=== PATIENT | female | born 1995 | race Caucasian/White ===

== ENCOUNTER 2019-06-28 22:45 | Inpatient (IN) | payer OTHER ==
[2019-06-28] MEDS ORDERED: RINGERS SOLUTION,LACTATED 1,000 ML IV PRN (22:47)
[2019-06-28] MEDS ORDERED: OXYTOCIN/NORMAL SALINE 20 UNIT/1,000 ML RTUINJ IV PRN (22:47)
[2019-06-28] MEDS ORDERED: MAG HYDROX/AL HYDROX/SIMETH SUSP 30 ML UDCUP PO PRN (22:47)
[2019-06-28] MEDS ORDERED: ACETAMINOPHEN 325 MG TABLET PO PRN (22:47)
[2019-06-28] MEDS ORDERED: DINOPROSTONE 10 MG VAGINAL INSERT.SR PV ONE (22:47)
[2019-06-28] MEDS ORDERED: RINGERS SOLUTION,LACTATED 1,000 ML IV ONE (22:47)
[2019-06-28] MEDS ORDERED: ZOLPIDEM TARTRATE 5 MG TABLET PO PRN (22:47)
[2019-06-28] MEDS ORDERED: LIDOCAINE 1% INJ-PF (10 MG/ML) 30 ML SDV ONE (22:57)
[2019-06-28] MEDS ORDERED: MISOPROSTOL 0.2 MG TABLET ONE (22:57)
[2019-06-28] MEDS ORDERED: OXYTOCIN 10 UNIT/ML VIAL ONE (22:57)
[2019-06-28] MEDS ORDERED: OXYTOCIN/NORMAL SALINE 20 UNIT/1,000 ML RTUINJ ONE (22:57)
[2019-06-28] MEDS ORDERED: DINOPROSTONE 10 MG VAGINAL INSERT.SR ONE (23:57)
[2019-06-29 00:11] LABS: APPEARANCE,URINE SLIGHTLY-CLOUDY; BILIRUBIN,URINE NEGATIVE (NEGATIVE); COLOR,URINE YELLOW; GLUCOSE, URINE NEGATIVE (NEGATIVE); KETONES,URINE NEGATIVE (NEGATIVE); LEUKOCYTE ESTERASE,URINE MODERATE (NEGATIVE); NITRITE,URINE NEGATIVE (NEGATIVE); PROTEIN,URINE NEGATIVE (NEGATIVE); URINE SPECIFIC GRAVITY 1.011; UROBILINOGEN,URINE NEGATIVE mg/dL (<2.0)
[2019-06-29 01:07] LABS: ABSOLUTE MONOCYTES (AUTO) 0.9 10^3/uL (0.1-1.4); ABSOLUTE NEUT (AUTO) 9.5 10^3/uL (1.7-8.2); BASOPHILS % (AUTO) 0.3 % (0-2); EOSINOPHILS % (AUTO) 0.3 % (0-6); HEMATOCRIT 34.9 % (36.0-47.0); LYMPHOCYTES % (AUTO) 15.6 % (13-45); MEAN CORPUSCULAR HEMOGLOBIN 29.5 pg (27.0-33.4); MEAN CORPUSCULAR HGB CONC 34.5 g/dL (32.0-36.0); MEAN CORPUSCULAR VOLUME 86 fl (80-97); MONOCYTES % (AUTO) 7.4 % (3-13); PLATELET COUNT 193 10^3/uL (150-450); RED BLOOD COUNT 4.08 10^6/uL (3.72-5.28); RED CELL DISTRIBUTION WIDTH 14.9 % (11.5-14.0); SEGMENTED NEUTROPHILS % (AUTO) 76.4 % (42-78); TOTAL CELLS COUNTED % (AUTO) 100 %; WHITE BLOOD COUNT 12.5 10^3/uL (4.0-10.5)
--- NOTE | 2019-06-29 07:01 | Admission Physical ---
Datetime Report Generated by CPN: 06/29/2019 07:01 CURRENT ADMISSION Chief Complaint: Scheduled Induction of Labor Indication for Induction: PreEclampsia; Maternal Diabetes Admit Impression : Term, Intrauterine ; No Active Labor; Intact Membranes; Induction of Labor Admit Plan: Admit to Unit; Initiate Labor Induction Protocol ALLERGIES Medication Allergies: No Medication Allergies: No Known Allergies (06/28/2019) Latex: No Latex Allergies Food Allergies: none Environmental Allergies: none OBSTETRICAL HISTORY EDC: 07/20/2019 00:00 : 1 Para: 0 Gestational Diabetes: Yes Rh Sensitization: No Incompetent Cervix: No JODEE: No Infertility: No ART Treatment: No Uterine Anomaly: No IUGR: No Hx Previous C/S: No Macrosomia: No Hx Loss/Stillborn: No PIH: No Hx : No Placenta Previa/Abruption: No Depression/PP Depression: No PTL/PROM: No Post Hemorrhage: No Current Procedures: Ultrasound; NST Obstetrical History Comments: G1- current, pre e, GDM SEE RECORDS Alcohol: No Marijuana : No Cocaine: No Other Illicit Drugs: No Cigarettes: Never Smoker. 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 Surgery: No Heart Disease: No Hosp/Surgery: No Autoimmune Disorder: No Anesthetic Complications: No Kidney Disease: No Abnormal Pap Smear: No Neuro/Epilepsy: No Psychiatric Disorders: No Other Medical Diseases: No Hepatitis/Liver Disease: No Significant Family History: No Varicosities/Phlebitis: No Trauma/Violence : No Thyroid Dysfunction: No INFECTIOUS HISTORY Gonorrhea: No Genital Herpes: No Chlamydia: No Tuberculosis: No Syphilis: No Hepatitis: No HIV/AIDS Exposure: No Rash or Viral Illness: No HPV: No PHYSICAL EXAM General: Normal HEENT: Normal Neurologic: Normal Thyroid: Normal Heart: Normal Lungs: Normal Breast: Normal Back: Normal Abdomen: Normal Genitourinary Exam: Normal Extremities: Normal DTRs: Normal Pelvic Type: Adequate Vital Signs: Reviewed; Within Normal Limits VAGINAL EXAM Dilatation: 1 Effacement: 50 Station: -3 MEMBRANES Pooling: Negative Membranes: Intact FETUS A EGA: 37.0 Monitoring: External US FHR- Baseline: 120s Variability: Moderate 6-25bpm Accelerations: 15X15 Decelerations: None FHR Category: Category I Admit Comment: G1 w/ an IUP@37-0/7 weeks presents to L_D for a scheduled IOL secondary to pre-eclampsia and GDM (diet controlled). She reports good movement. She is GBS Negative. Cervidil is planned for her. PLANS FOR LABOR AND DELIVERY Labor and Delivery: None Pain Management: Epidural Feeding Preference: Breast Benefit of Breast Feed Discussed: Yes Circumcision: Yes INFORMED CONSENT Signature: with User ID: [email or web address]
[2019-06-29 09:06] LABS: ALBUMIN 3.2 g/dL (3.5-5.0); ALKALINE PHOSPHATASE 159 U/L (38-126); ANION GAP 7 (5-19); ASPARTATE AMINO TRANSFERASE 21 U/L (14-36); BLOOD UREA NITROGEN 7 mg/dL (7-20); CALCIUM 9.2 mg/dL (8.4-10.2); CARBON DIOXIDE 22 mmol/L (22-30); CHLORIDE 107 mmol/L (98-107); GLUCOSE 92 mg/dL (75-110); POTASSIUM 3.9 mmol/L (3.6-5.0)
[2019-06-29 09:07] LABS: BILIRUBIN,TOTAL 0.3 mg/dL (0.2-1.3); TOTAL PROTEIN 6.2 g/dL (6.3-8.2); URIC ACID 4.1 mg/dL (2.5-6.2)
[2019-06-29] MEDS ORDERED: HYDROMORPHONE HCL INJ/PF 2 MG/ML AMPULE IV PRN (15:57)
[2019-06-29] MEDS ORDERED: HYDROMORPHONE HCL INJ/PF 2 MG/ML AMPULE ONE ×2 (16:00→22:12)
[2019-06-29] MEDS ORDERED: EPHEDRINE SULFATE INJ 50 MG/1 ML AMPULE ONE (21:32)
[2019-06-29] MEDS ORDERED: FENTANYL/BUPIVACAINE/NS/PF 300 MCG/150 ML RTUINJ EPI ONE (21:33)
[2019-06-29] MEDS ORDERED: BUPIVACAINE HCL 0.25 % INJ/PF (2.5 MG/1 ML) 30 ML VIAL ONE (21:33)
[2019-06-29 21:42] LABS: ABSOLUTE MONOCYTES (AUTO) 0.9 10^3/uL (0.1-1.4); ABSOLUTE NEUT (AUTO) 8.3 10^3/uL (1.7-8.2); BASOPHILS % (AUTO) 0.3 % (0-2); EOSINOPHILS % (AUTO) 0.2 % (0-6); HEMOGLOBIN 11.9 g/dL (12.0-15.5); LYMPHOCYTES % (AUTO) 17.4 % (13-45); MEAN CORPUSCULAR HEMOGLOBIN 29.5 pg (27.0-33.4); MEAN CORPUSCULAR HGB CONC 33.9 g/dL (32.0-36.0); MEAN CORPUSCULAR VOLUME 87 fl (80-97); PLATELET COUNT 191 10^3/uL (150-450); RED BLOOD COUNT 4.03 10^6/uL (3.72-5.28); RED CELL DISTRIBUTION WIDTH 15.2 % (11.5-14.0); SEGMENTED NEUTROPHILS % (AUTO) 74.1 % (42-78); TOTAL CELLS COUNTED % (AUTO) 100 %; WHITE BLOOD COUNT 11.2 10^3/uL (4.0-10.5)
[2019-06-29 21:59] LABS: ALBUMIN 3.4 g/dL (3.5-5.0); ALKALINE PHOSPHATASE 159 U/L (38-126); ANION GAP 9 (5-19); ASPARTATE AMINO TRANSFERASE 26 U/L (14-36); BILIRUBIN,DIRECT 0.3 mg/dL (0.0-0.4); BILIRUBIN,TOTAL 0.5 mg/dL (0.2-1.3); BLOOD UREA NITROGEN 7 mg/dL (7-20); CALCIUM 9.3 mg/dL (8.4-10.2); CARBON DIOXIDE 20 mmol/L (22-30); CHLORIDE 107 mmol/L (98-107); GLUCOSE 83 mg/dL (75-110); POTASSIUM 3.8 mmol/L (3.6-5.0); URIC ACID 3.6 mg/dL (2.5-6.2)
[2019-06-29] MEDS ORDERED: FENTANYL CITRATE INJ/PF 100 MCG/2 ML AMPUL ONE (22:02)
[2019-06-29] MEDS ORDERED: LIDOCAINE 1% INJ-PF (10 MG/ML) 30 ML SDV ONE (22:02)
[2019-06-29] MEDS ORDERED: CEFAZOLIN INJ 1 GM VIAL ONE (22:12)
[2019-06-29] MEDS ORDERED: MISOPROSTOL 0.2 MG TABLET ONE (22:12)
[2019-06-29] MEDS ORDERED: OXYTOCIN/NORMAL SALINE 0 UNIT/0 ML RTUINJ ONE (22:16)
[2019-06-30] MEDS ORDERED: FENTANYL CITRATE INJ/PF 100 MCG/2 ML AMPUL ONE (03:58)
[2019-06-30] MEDS ORDERED: LIDOCAINE 1.5%/EPINEPHRINE INJ 5 ML AMP ONE (04:01)
[2019-06-30] MEDS ORDERED: ACETAMINOPHEN 325 MG TABLET ONE (04:24)
[2019-06-30] MEDS ORDERED: MAGNESIUM HYDROXIDE SUSP 30 ML UDCUP PO PRN (06:59)
[2019-06-30] MEDS ORDERED: DIPH/PERTUSS(ACELL)/TETANUS VAC/PF 0.5 ML SYR (>=10YO) IM PRN (06:59)
[2019-06-30] MEDS ORDERED: NA PHOS,M-B/NA PHOS,DI-BA (ADULT) 133 ML ENEMA PR PRN (06:59)
[2019-06-30] MEDS ORDERED: OXYTOCIN/NORMAL SALINE 20 UNIT/1,000 ML RTUINJ IV PRN (06:59)
[2019-06-30] MEDS ORDERED: ACETAMINOPHEN WITH CODEINE #3 TABLET PO PRN ×2 (06:59)
[2019-06-30] MEDS ORDERED: PSEUDOEPHEDRINE HCL 30 MG TABLET PO PRN (06:59)
[2019-06-30] MEDS ORDERED: ACETAMINOPHEN 325 MG TABLET PO PRN (06:59)
[2019-06-30] MEDS ORDERED: DIBUCAINE 1% OINTMENT 28 GM TP PRN (06:59)
[2019-06-30] MEDS ORDERED: ZOLPIDEM TARTRATE 5 MG TABLET PO PRN (06:59)
[2019-06-30] MEDS ORDERED: MEASLES,MUMPS&RUBELLA VACC/PF 0.5 ML VIAL SUBCUT PRN (06:59)
[2019-06-30] MEDS ORDERED: BENZOCAINE/MENTHOL AEROSOL SPRAY 56 ML TOP PRN (06:59)
[2019-06-30] MEDS ORDERED: PROMETHAZINE HCL INJ 25 MG/1 ML VIAL IV PRN (06:59)
[2019-06-30] MEDS ORDERED: GLYCERIN/WITCH HAZEL LEAF 1 EACH MED..WIPE TP PRN (06:59)
[2019-06-30] MEDS ORDERED: PROMETHAZINE HCL 25 MG TABLET PO PRN (06:59)
[2019-06-30] MEDS ORDERED: ACETAMINOPHEN 650 MG SUPP.RECT PR PRN (06:59)
[2019-06-30] MEDS ORDERED: DIPHENHYDRAMINE HCL 25 MG CAPSULE PO PRN (06:59)
[2019-06-30] MEDS ORDERED: PROMETHAZINE HCL 25 MG SUPP.RECT PR PRN (06:59)
[2019-06-30] MEDS: DOCUSATE SODIUM 100 MG CAPSULE PO SCH ×2 (09:25→17:41)
[2019-06-30] MEDS: SENNOSIDES/DOCUSATE 8.6-50 MG 1 EACH TABLET PO SCH (09:25)
[2019-06-30] MEDS: PRENATAL VITAMIN W DHA CAPSULE PO SCH (09:25)
[2019-06-30] MEDS: FERROUS SULFATE 325 MG TABLET PO SCH ×2 (09:25→17:41)
[2019-06-30] MEDS: FAMOTIDINE 20 MG TABLET PO SCH ×2 (09:26→21:09)
[2019-06-30] MEDS: IBUPROFEN 800 MG TABLET PO SCH ×2 (14:00→21:09)
[2019-06-30] MEDS ORDERED: INFLUENZA QUAD (6MOS+) 2019-20 VAC 0.5 ML SYR IM ONE (15:00)
[2019-07-01] MEDS: IBUPROFEN 800 MG TABLET PO SCH ×3 (05:47→22:19)
[2019-07-01 07:55] LABS: HEMOGLOBIN 9.9 g/dL (12.0-15.5); MEAN CORPUSCULAR HEMOGLOBIN 29.7 pg (27.0-33.4); MEAN CORPUSCULAR HGB CONC 34.1 g/dL (32.0-36.0); MEAN CORPUSCULAR VOLUME 87 fl (80-97); PLATELET COUNT 182 10^3/uL (150-450); RED BLOOD COUNT 3.33 10^6/uL (3.72-5.28); WHITE BLOOD COUNT 13.1 10^3/uL (4.0-10.5)
[2019-07-01] MEDS: PRENATAL VITAMIN W DHA CAPSULE PO SCH (09:11)
[2019-07-01] MEDS: FERROUS SULFATE 325 MG TABLET PO SCH ×2 (09:11→17:57)
[2019-07-01] MEDS: SENNOSIDES/DOCUSATE 8.6-50 MG 1 EACH TABLET PO SCH (09:12)
[2019-07-01] MEDS: FAMOTIDINE 20 MG TABLET PO SCH ×2 (09:12→22:19)
[2019-07-01] MEDS: DOCUSATE SODIUM 100 MG CAPSULE PO SCH ×2 (09:12→17:57)
--- NOTE | 2019-07-01 09:21 | PDOC PROGRESS REPORT ---
Subjective-OB Progress Note for:: 07/01/19 Subjective: Pt doing well, no complaints. She reports light bleeding, reg diet and voiding without difficulty. Physical Exam (OB) Vital Signs: Temp Pulse Resp BP Pulse Ox 98 F 96 12 134/70 H 99 07/01/19 04:00 07/01/19 04:00 07/01/19 04:00 07/01/19 04:00 06/30/19 21:09 - PIH/Pre-Eclampsia DTR's: 1 + Clonus: Negative Headache: Absent Epigastric Pain: No Visual Changes: No - Lochia Lochia Amount: Scant < 10 ml Lochia Color: Rubra/Red - Abdomen Description: Tender, Soft, Round Hernia Present: No Fundal Description: Firm, Midline Fundal Height: u/u - u/2 Objective-Diagnostic Laboratory: 07/01/19 06:37 06/29/19 21:27 07/01/19 06:37 WBC 13.1 H RBC 3.33 L Hgb 9.9 L Hct 29.0 L MCV 87 MCH 29.7 MCHC 34.1 RDW 15.0 H Plt Count 182 Assessment and Plan(PN) - Assessment and Plan (1) Obstetrical laceration, second degree Is this a current diagnosis for this admission?: Yes (2) Pre-eclampsia Qualifiers: Trimester: third trimester Qualified Code(s): O14.93 - Unspecified pre- eclampsia, third trimester Is this a current diagnosis for this admission?: Yes (3) Vaginal delivery Is this a current diagnosis for this admission?: Yes - Time Spent with Patient Time with patient: Less than 15 minutes Medications reviewed and adjusted accordingly: Yes - Disposition Anticipated Discharge: Home Within: within 24 hours
[2019-07-02] MEDS: IBUPROFEN 800 MG TABLET PO SCH (05:01)
[2019-07-02 08:27] VITALS: BP 108/55
[2019-07-02] MEDS: FERROUS SULFATE 325 MG TABLET PO SCH (10:16)
[2019-07-02] MEDS: PRENATAL VITAMIN W DHA CAPSULE PO SCH (10:16)
[2019-07-02] MEDS: DOCUSATE SODIUM 100 MG CAPSULE PO SCH (10:17)
[2019-07-02] MEDS: SENNOSIDES/DOCUSATE 8.6-50 MG 1 EACH TABLET PO SCH (10:17)
[2019-07-02] MEDS: FAMOTIDINE 20 MG TABLET PO SCH (10:17)
--- NOTE | 2019-07-02 10:51 | PDOC DISCHARGE SUMMARY ---
Impression - Admit/DC Date/PCP Admission Date/Primary Care Provider: 06/28/19 22:45 Discharge Date: 07/02/19 - Discharge Diagnosis (1) Obstetrical laceration, second degree Is this a current diagnosis for this admission?: Yes (2) Pre-eclampsia Is this a current diagnosis for this admission?: Yes (3) Vaginal delivery Is this a current diagnosis for this admission?: Yes - Additional Information Resuscitation Status: Full Code Discharge Diet: Regular Discharge Activity: Balance Activity w/Rest, Pelvic Rest Referrals: [facility] [Provider Group] Home Medications: Vit,Calc76/Iron/Folic [Prenatabs Rx Tablet] 1 tab PO DAILY 06/28/19 Results Laboratory Results: WBC 13.1 10^3/uL (4.0-10.5) H 07/01/19 06:37 RBC 3.33 10^6/uL (3.72-5.28) L 07/01/19 06:37 Hgb 9.9 g/dL (12.0-15.5) L 07/01/19 06:37 Hct 29.0 % (36.0-47.0) L 07/01/19 06:37 MCV 87 fl (80-97) 07/01/19 06:37 MCH 29.7 pg (27.0-33.4) 07/01/19 06:37 MCHC 34.1 g/dL (32.0-36.0) 07/01/19 06:37 RDW 15.0 % (11.5-14.0) H 07/01/19 06:37 Plt Count 182 10^3/uL (150-450) 07/01/19 06:37 Lymph % (Auto) 17.4 % (13-45) 06/29/19 21:27 Walker % (Auto) 8.0 % (3-13) 06/29/19 21:27 Eos % (Auto) 0.2 % (0-6) 06/29/19 21:27 Baso % (Auto) 0.3 % (0-2) 06/29/19 21:27 Absolute Neuts (auto) 8.3 10^3/uL (1.7-8.2) H 06/29/19 21:27 Absolute Lymphs (auto) 2.0 10^3/uL (0.5-4.7) 06/29/19 21: Absolute Monos (auto) 0.9 10^3/uL (0.1-1.4) 06/29/19: Absolute Eos (auto) 0.0 10^3/uL (0.0-0.6) 06/29/19: Absolute Basos (auto) 0.0 10^3/uL (0.0-0.2) 06/29/19: Seg Neutrophils % 74.1 % (42-78) 06/29/19 21: Sodium 136.4 mmol/L (137-145) L 06/29/19: Potassium 3.8 mmol/L (3.6-5.0) 06/29/19: Chloride 107 mmol/L (98-107) 06/29/19: Carbon Dioxide 20 mmol/L (22-30) L 06/29/19: Anion Gap 9 (5-19) 06/29/19: BUN 7 mg/dL (7-20) 06/29/19: Creatinine 0.41 mg/dL (0.52-1.25) L 06/29/19: Est GFR ( Amer) > 60 (>60) 06/29/19: Est GFR (MDRD) Non-Af > 60 (>60) 06/29/19: Glucose 83 mg/dL (75-110) 06/29/19: Uric Acid 3.6 mg/dL (2.5-6.2) 06/29/19: Calcium 9.3 mg/dL (8.4-10.2) 06/29/19: Total Bilirubin 0.5 mg/dL (0.2-1.3) 06/29/19: Direct Bilirubin 0.3 mg/dL (0.0-0.4) 06/29/19: Neonat Total Bilirubin Not Reportable 06/29/19: Neonat Direct Bilirubin Not Reportable 06/29/19: Neonat Indirect Bili Not Reportable 06/29/19: AST 26 U/L (14-36) 06/29/19: ALT 18 U/L (<35) 06/29/19 21:27 Alkaline Phosphatase 159 U/L (38-126) H 06/29/19 21:27 Lactate Dehydrogenase 183 U/L (120-246) 06/29/19 21: Total Protein 7.0 g/dL (6.3-8.2) 06/29/19 21: Albumin 3.4 g/dL (3.5-5.0) L 06/29/19 21: Urine Color YELLOW 06/28/19 23:05 Urine Appearance SLIGHTLY-CLOUDY 06/28/19 23:05 Urine pH 7.0 (5.0-9.0) 06/28/19 23:05 Ur Specific Pansey 1.011 06/28/19 23:05 Urine Protein NEGATIVE mg/dL (NEGATIVE) 06/28/19 23:05 Urine Glucose (UA) NEGATIVE mg/dL (NEGATIVE) 06/28/19 23:05 Urine Ketones NEGATIVE mg/dL (NEGATIVE) 06/28/19 23:05 Urine Blood MODERATE (NEGATIVE) H 06/28/19 23:05 Urine Nitrite NEGATIVE (NEGATIVE) 06/28/19 23:05 Urine Bilirubin NEGATIVE (NEGATIVE) 06/28/19 23:05 Urine Urobilinogen NEGATIVE mg/dL (<2.0) 06/28/19 23:05 Ur Leukocyte Esterase MODERATE (NEGATIVE) H 06/28/19 23:05 Urine WBC (Auto) 73 /HPF 06/28/19 23:05 Urine RBC (Auto) 5 /HPF 06/28/19 23:05 Urine Bacteria (Auto) 2+ /HPF 06/28/19 23:05 Squamous Epi Cells Auto <1 /HPF 06/28/19 23:05 Urine Mucus (Auto) RARE /LPF 06/28/19 23:05 Urine Ascorbic Acid NEGATIVE (NEGATIVE) 06/28/19 23:05 RPR NONREACTIVE (NONREACTIVE) 06/29/19 00:40 Blood Type O NEGATIVE 06/29/19 00:40 Antibody Screen POSITIVE 06/29/19 00:40 Antibody Identification RHOGAM INDUCED ANTI-D 06/29/19 00:40
--- NOTE | 2019-07-05 09:14 | Delivery Summary ---
Del Sum A-C Datetime Report Generated by CPN: 07/05/2019 09:14 DELIVERY PERSONNEL DELIVERY PERSONNEL: [id number] Delivery Doctor:: Symone Taylor MD Labor and Delivery Nurse:: Luci Li RNboring machine set up operator Nurse:: Frances Kahn RN Patients Transporter:: Tova Tubbs RN Nursery Nurse:: BOB Restrepo Tech/WIRE TINNER: Angeles Vásquez, ST MATERNAL INFORMATION Delivery Anesthesia: Epidural Medications After Delivery: Pitocin Bolus-Please Comment Meds After Delivery Comment: Pitocin 20 units/1000 ml NSS Estimated Blood Loss (ml): 200 Delivery QBL Comment: 200 Maternal Complications: None Provider Comments: VMI delivered in BERNARD presentation. No nuchal cord. Shoulders and body delivered without difficulty. Cord doubly clamped and cut and to maternal abdomen for NRP. Placenta delivered intact spontaneously. FF at U. 2nd degree perineal laceration repaired with good hemostasis. periurethral laceration repaired with good hemostasis. Mother and baby stable upon provider leaving the room. LABOR SUMMARY EDC: 07/20/2019 00:00 No. Babies in Womb: 1 Labor Anesthesia: Epidural LABOR INFORMATION Reason for Induction: Post Dates Onset of Labor: 06/29/2019 21:00 Complete Dilatation: 06/30/2019 05:07 Cervical Ripening Agents: Cervidil Oxytocin: Induction Group B Beta Strep: Negative Steroids Given: None Reason Steroids Not Administered: Not Applicable MEMBRANES Membranes Rupture Method: Artificial Rupture of Membranes: 06/29/2019 21:00 Length of Rupture (hr): 9.50 Amniotic Fluid Color: Clear Amniotic Fluid Amount: Moderate Amniotic Fluid Odor: Normal STAGES OF LABOR Stage 1 hr: 8 Stage 1 min: 7 Stage 2 hr: 1 Stage 2 min: 23 Stage 3 hr: 0 Stage 3 min: 4 Total Time in Labor hr: 9 Total Time in Labor min: 34 VAGINAL DELIVERY Episiotomy: None Laceration #1: Perineal Laceration Extension #1: Second Degree Laceration #2: Periurethral Laceration Extension #2: N/A Laceration Repair: Yes Laceration Repair Note: both lacerations repaired in usual fashion Sponge Count Correct: Yes Sharps Count Correct: Yes CSECTION DELIVERY Primary Indication: N/A Secondary Indication: N/A BABY A INFORMATION Infant Delivery Date/Time: 06/30/2019 06:30 Method of Delivery: Vaginal Born in Route : No : N/A Forceps: N/A Vacuum Extraction: N/A Shoulder Dystocia : No PRESENTATION/POSITION BABY A Presentation: Cephalic Cephalic Presentation: Vertex Breech Presentation: N/A PLACENTA INFORMATION BABY A Placenta Delivery Time : 06/30/2019 06:34 Placenta Method of Delivery: Spontaneous Placenta Status: Delivered SCORES BABY A Heart Rate 1 min: >100 bpm Resp Effort 1 min: Good Cry Reflex Irritability 1 min: Cough or Sneeze or Pulls Away Muscle Tone 1 min: Some Flexion of Extremities Color 1 min: Body [place], Extremities Blue SCORE 1 MIN: 8 Heart Rate 5 min: >100 bpm Resp Effort 5 min: Good Cry Reflex Irritability 5 min: Cough or Sneeze or Pulls Away Muscle Tone 5 min: Active Motion Color 5 min: Body [place], Extremities Blue SCORE 5 MIN: 9 INFORMATION BABY A Gestational Age at Delivery: 37.1 Gestational Status: Early Term- 37- 38.6 Weeks Infant Outcome : Liveborn Infant Condition : Stable Infant Sex: Male IDENTIFICATION BABY A Verification Date/Time: 06/30/2019 06:39 ID Band Number: [id number] Mother's Name Verified: Yes Infant RN Verifying Infant: Gisselle Vásquez, CHIEF INVESTIGATOR Additional Verifying Personnel: Jennifer Li RN WEIGHT/LENGTH BABY A Infant Birthweight (gm): 3030 Infant Weight (lb): 6 Infant Weight (oz): 11 Infant Length (in): 20.25 Infant Length (cm): 51.44 CORD INFORMATION BABY A No. Cord Vessels: 3 Nuchal Cord : Around Neck x1, Loose Infant Suction: None ASSESSMENT BABY A Skin to Skin: Yes SIGNATURES Signature: with User ID: [email or web address]
== END 2019-07-02 12:30 | disposition home or self-care (01) | DRG 807 ==
LOC: LR 22:45 → 2S 06-30 08:40
PROVIDERS: ADMIT Obstetrics & Gynecology; ATTEND Student in an Organized Health Care Education/Training Program
PROC: 10E0XZZ Delivery of Products of Conception, External Approach (ICD-10-PCS; principal; 2019-06-30)
PROC: 0KQM0ZZ Repair Perineum Muscle, Open Approach (ICD-10-PCS; 2019-06-30)
PROC: 0UQMXZZ Repair Vulva, External Approach (ICD-10-PCS; 2019-06-30)
DX: O14.94 Unspecified pre-eclampsia, complicating childbirth (principal); Z37.0 Single live birth; O69.81X0 Labor and delivery complicated by cord around neck, without compression, not applicable or unspecified; O24.420 Gestational diabetes mellitus in childbirth, diet controlled; O70.1 Second degree perineal laceration during delivery; O71.82 Other specified trauma to perineum and vulva; O48.0 Post-term pregnancy; Z3A.37 37 weeks gestation of pregnancy
CPT/HCPCS: 36415; 80053; 81001; 83615; 84550; 85025; 85027; 86592; 86850; 86870; 86900; 86901; 87070; 94760; J0690; J1170; J2590; J3010; J3490

== ENCOUNTER 2019-07-02 15:26 | Emergency (ER) | payer OTHER ==
[2019-07-02] MEDS ORDERED: IBUPROFEN 800 MG TABLET PO ONE (16:40)
--- NOTE | 2019-07-02 16:40 | ER Document Report ---
ED Medical Screen (RME) - General Chief Complaint: Post Problem Stated Complaint: SHAKING/COLD/FEVER Time Seen by Provider: 07/02/19 16:32 TRAVEL OUTSIDE OF THE [place] IN LAST 30 DAYS: No - HPI Notes: 07/02/19 16:38 23-year-old female to the emergency department with complaints of shaking chills, fever that began this afternoon at about 1130. She just delivered a baby via vaginal delivery 2 days ago and was discharged from the hospital this morning. She states prior to having the baby she had a fever but had not been running one since. When she got home she had shaking rigors. She states that she took Tylenol but continues to feel poorly. She denies a cough. She denies burning with urination. She states that she is not particularly sore from her vaginal delivery. She did deliver 3 weeks early because she had preeclampsia. She is not on any blood pressure medicine. She does admit to a headache. Noted elevated blood pressure in triage. She states not all of her milk has come in but she does plan to breast-feed. I performed a brief medical screening exam on the patient determined that the patient needs further evaluation and management by main side provider. I have placed initial orders to help expedite care. - Related Data Allergies/Adverse Reactions: No Known Allergies Allergy (Verified 07/02/19 16:30) Past Medical History - Social History Chew tobacco use (# tins/day): No Frequency of alcohol use: None Drug Abuse: None Physical Exam - Vital signs Vitals: Temp Pulse Resp BP Pulse Ox 100.1 F 105 H 18 159/70 H 97 07/02/19 16:07/02/19 16:07/02/19 16:07/02/19 16:07/02/19 16:26 Course - Vital Signs Vital signs: Temp Pulse Resp BP Pulse Ox 100.1 F 105 H 18 159/70 H 97 07/02/19 16:07/02/19 16:07/02/19 16:07/02/19 16:07/02/19 16:
[2019-07-02 17:45] LABS: ABSOLUTE LYMPHOCYTES (AUTO) 1.1 10^3/uL (0.5-4.7); ABSOLUTE MONOCYTES (AUTO) 1.1 10^3/uL (0.1-1.4); ABSOLUTE NEUT (AUTO) 10.4 10^3/uL (1.7-8.2); BASOPHILS % (AUTO) 0.1 % (0-2); EOSINOPHILS % (AUTO) 0.2 % (0-6); HEMOGLOBIN 11.7 g/dL (12.0-15.5); LYMPHOCYTES % (AUTO) 8.7 % (13-45); MEAN CORPUSCULAR HEMOGLOBIN 29.9 pg (27.0-33.4); MEAN CORPUSCULAR HGB CONC 34.4 g/dL (32.0-36.0); MEAN CORPUSCULAR VOLUME 87 fl (80-97); MONOCYTES % (AUTO) 8.8 % (3-13); PLATELET COUNT 199 10^3/uL (150-450); RED BLOOD COUNT 3.91 10^6/uL (3.72-5.28); RED CELL DISTRIBUTION WIDTH 15.2 % (11.5-14.0); SEGMENTED NEUTROPHILS % (AUTO) 82.2 % (42-78); TOTAL CELLS COUNTED % (AUTO) 100 %; WHITE BLOOD COUNT 12.7 10^3/uL (4.0-10.5)
[2019-07-02 18:02] LABS: ALBUMIN 3.1 g/dL (3.5-5.0); ALKALINE PHOSPHATASE 145 U/L (38-126); ANION GAP 7 (5-19); ASPARTATE AMINO TRANSFERASE 32 U/L (14-36); BILIRUBIN,TOTAL 0.4 mg/dL (0.2-1.3); BLOOD UREA NITROGEN 10 mg/dL (7-20); CALCIUM 8.9 mg/dL (8.4-10.2); CARBON DIOXIDE 23 mmol/L (22-30); CHLORIDE 104 mmol/L (98-107); GLUCOSE 80 mg/dL (75-110); POTASSIUM 3.5 mmol/L (3.6-5.0); TOTAL PROTEIN 6.2 g/dL (6.3-8.2)
[2019-07-02 18:08] LABS: A TYPE INFLUENZA AG NEGATIVE (NEGATIVE); AMORPHOUS SEDIMENT,URINE TRACE /HPF; APPEARANCE,URINE SLIGHTLY-CLOUDY; B INFLUENZA AG NEGATIVE (NEGATIVE); BILIRUBIN,URINE NEGATIVE (NEGATIVE); COLOR,URINE YELLOW; GLUCOSE, URINE NEGATIVE (NEGATIVE); KETONES,URINE NEGATIVE (NEGATIVE); LEUKOCYTE ESTERASE,URINE LARGE (NEGATIVE); NITRITE,URINE NEGATIVE (NEGATIVE); PROTEIN,URINE 30 mg/dL (NEGATIVE); URINE SPECIFIC GRAVITY 1.009; UROBILINOGEN,URINE NEGATIVE mg/dL (<2.0)
--- NOTE | 2019-07-02 22:16 | ER Document Report ---
Entered by SHERYL DIAZ SCRIBE 07/02/[id number] Acting as scribe for:MICKY SYED MD ED General - General Chief Complaint: Post Problem Stated Complaint: SHAKING/COLD/FEVER Time Seen by Provider: 07/02/19 16:32 Primary Care Provider: ADALGISA CORONA CNM [Primary Care Provider] - Follow up as needed Information source: Patient Notes: 23-year-old female presents to the emergency department 2 days complaining of headache, chills and fever that began today. Patient was discharged today from the hospital and stated that shortly after arriving home she began "shaking" and was running a fever (100.6). Patient denies shortness of breath, cough, dysuria, urine malodor, and nasal drainage. TRAVEL OUTSIDE OF THE [place] IN LAST 30 DAYS: No - Related Data Allergies/Adverse Reactions: No Known Allergies Allergy (Verified 07/02/19 16:30) Past Medical History - Social History Smoking Status: Never Smoker Chew tobacco use (# tins/day): No Frequency of alcohol use: None Drug Abuse: None Lives with: Family Family History: Reviewed & Not Pertinent Patient has suicidal ideation: No Patient has homicidal ideation: No - Medical History Medical History: Negative Surgical Hx: Negative Review of Systems - Review of Systems Constitutional: See HPI, Chills, Fever EENT: No symptoms reported Cardiovascular: No symptoms reported Respiratory: See HPI. denies: Short of breath Gastrointestinal: No symptoms reported Genitourinary: See HPI. denies: Burning, Dysuria Female Genitourinary: No symptoms reported Musculoskeletal: No symptoms reported Skin: No symptoms reported Hematologic/Lymphatic: No symptoms reported Neurological/Psychological: See HPI, Headaches -: Yes All other systems reviewed and negative Physical Exam - Vital signs Vitals: Temp Pulse Resp BP Pulse Ox 100.1 F 105 H 18 159/70 H 97 07/02/19 16:26 07/02/19 16:26 07/02/19 16:26 07/02/19 16:07/02/19 16:26 - Notes Notes: Physical Exam: General: Alert, appears well. HEENT: Normocephalic. Atraumatic. PERRL. Extraocular movements intact. Mild erythema in throat. Neck: Supple. Non-tender. Respiratory: No respiratory distress. Clear and equal breath sounds bilaterally. Cardiovascular: Regular rate and rhythm. Abdominal: Normal Inspection. Non-tender. Normal Bowel Sounds. Abdomen extended due to 2-days . Back: No gross abnormalities. Extremities: Moves all four extremities. Upper extremities: Normal inspection. Normal ROM. Lower extremities: Normal inspection. No edema. Normal ROM. Neurological: Normal cognition. AAOx4. Normal speech. Psychological: Normal affect. Normal Mood. Skin: Warm. Dry. Normal color. Course - Re-evaluation Re-evalutation: 07/02/19 22:13 Patient resting comfortable anxious to leave at this time. I discussed patient's lab results and determined that her urinalysis was impossible to use that is criteria for urinary tract infection inasmuch as it is a contaminated specimen patient has no urinary symptoms at this time most likely causes is viral syndrome. Did discuss with patient if she develops a source of infection certainly she needs to follow-up with her primary care or return to the emergency department. - Vital Signs Vital signs: Temp Pulse Resp BP Pulse Ox 99.9 F 105 H 24 H 118/68 99 07/02/19 19:14 07/02/19 16:26 07/02/19 19:01 07/02/19 19:01 07/02/19 19:01 07/02/19 22:13 Vital signs are stable mild sinus tach at 105 temperature 99.9. - Laboratory Result Diagrams: 07/02/19 17:23 07/02/19 17:23 Laboratory results interpreted by me: 07/02/19 07/02/19 07/02/19 17:23 17:23 17:23 WBC 12.7 H Hgb 11.7 L Hct 34.0 L RDW 15.2 H Lymph % (Auto) 8.7 L Absolute Neuts (auto) 10.4 H Seg Neutrophils % 82.2 H Sodium 134.3 L Potassium 3.5 L Alkaline Phosphatase 145 H Total Protein 6.2 L Albumin 3.1 L Urine Protein 30 H Urine Blood LARGE H Ur Leukocyte Esterase LARGE H 07/02/19 22:12 Patient's labs are within normal limits no evidence for any infectious diseases. Urinalysis is contaminated 2days contaminated with red cells and white cells. Strep throat is negative on the rapid strep screen. Currently patient is not showing any signs of any infectious process at this time. Discharge - Discharge Clinical Impression: Viral syndrome Condition: Stable Disposition: HOME, SELF-CARE Additional Instructions: Viral Syndrome The physician has diagnosed a viral infection. Viruses not only cause "colds," but can cause many different symptoms including generalized aching, fever, headache, cough, diarrhea, nausea, vomiting, and fatigue. The treatment, for the most part, is simply relief of symptoms. This means that antibiotics are usually not given. Rest, fluids, pain medications and, occasionally, medication for the specific symptoms that are most bothersome will be prescribed. Use good handwashing to avoid passing the virus to others. Shared toys should be cleaned with disinfectant. Clean the toilets, sinks, and counter surfaces in bathrooms. Launder clothing in hot water. Contact the physician if you develop any new or unusual symptoms such as severe headache, stiff neck, high fever, chest pain, productive cough, or shortness of breath. You should be rechecked if you don't see marked improvement within seven to 10 days. Inasmuch as you are only 2 days and there were no complications during your gestation or the period thus far we have not found a source for your infection if there is 1 other than viral syndrome. And as discussed your urine is contaminated due to your being 2 days to follow-up with your OB rx specialist if there is any problems with postdelivery. We do recommend Tylenol as needed for pain or fever. Referrals: ADALGISA CORONA CNM [Primary Care Provider] - Follow up as needed I personally performed the services described in the documentation, reviewed and edited the documentation which was dictated to the scribe in my presence, and it accurately records my words and actions.
[2019-07-02 22:27] VITALS: BP 133/81
== END 2019-07-02 22:41 | disposition home or self-care (01) ==
LOC: ER 15:26
DX: O98.53 Other viral diseases complicating the puerperium (principal); B34.9 Viral infection, unspecified; O90.89 Other complications of the puerperium, not elsewhere classified; R00.0 Tachycardia, unspecified
CPT/HCPCS: 36415; 80053; 81001; 85025; 87040; 87070; 87804; 87880; 99284

== ENCOUNTER 2020-03-21 17:43 | Emergency (ER) | payer SELFPAY ==
[2020-03-21] MEDS ORDERED: METOCLOPRAMIDE HCL INJ/PF 10 MG/2 ML SDV IV ONE (18:42)
[2020-03-21] MEDS ORDERED: DIPHENHYDRAMINE HCL 50 MG/ML VIAL IV ONE (18:42)
--- NOTE | 2020-03-21 18:46 | ER Document Report ---
ED Medical Screen (RME) - General Stated Complaint: HEADACHE Time Seen by Provider: 03/21/20 18:33 Primary Care Provider: ADALGISA CORONA CNM [Primary Care Provider] - Follow up as needed Mode of Arrival: Ambulatory Information source: Patient Notes: HPI; 24-year-old female with no previous medical problems presents to the emergency room complaining of a headache that started last night. States that she went to turn her head to the right and she had a sharp stabbing "electrical shock" to the left side of her head. She states that she developed a headache shortly thereafter. Took Excedrin without relief. Headache did not keep her awake. No sudden thunderclap. Denies worst headache of her life. States she does get frequent headaches but this 1 was more severe. States that she woke up this morning and the headache was still there. Denies any photophobia, no nausea, no sensitivity to noise. No history of migraines. PE: Alert and oriented x3. PERRLA, EOMI lungs: Clear to auscultation without rales, rhonchi, wheezes. Heart tachycardic without murmurs, rubs, gallops. I have greeted and performed a rapid initial assessment of this patient. A comprehensive ED assessment and evaluation of the patient, analysis of test results and completion of the medical decision making process will be conducted by additional ED providers. I have specifically instructed the patient or family members with the patient to immediately return to any nursing staff should anything change in the patient's condition or with their chief complaint. TRAVEL OUTSIDE OF THE [place] IN LAST 30 DAYS: No - Related Data Allergies/Adverse Reactions: No Known Allergies Allergy (Verified 07/02/19 16:30) Physical Exam - Vital signs Vitals: Temp Pulse Resp BP Pulse Ox 98.3 F 112 H 16 152/80 H 99 03/21/20 17:46 03/21/20 17:46 03/21/20 17:46 03/21/20 17:46 03/21/20 17:46 Course - Vital Signs Vital signs: Temp Pulse Resp BP Pulse Ox 98.3 F 112 H 16 152/80 H 99 03/21/20 17:46 03/21/20 17:46 03/21/20 17:46 03/21/20 17:46 03/21/20 17:46 Doctor's Discharge - Discharge Referrals: ADALGISA CORONA CNM [Primary Care Provider] - Follow up as needed
[2020-03-21 19:01] LABS: ABSOLUTE LYMPHOCYTES (AUTO) 2.3 10^3/uL (0.5-4.7); ABSOLUTE MONOCYTES (AUTO) 0.8 10^3/uL (0.1-1.4); ABSOLUTE NEUT (AUTO) 8.1 10^3/uL (1.7-8.2); BASOPHILS % (AUTO) 0.3 % (0-2); EOSINOPHILS % (AUTO) 0.3 % (0-6); LYMPHOCYTES % (AUTO) 20.3 % (13-45); MEAN CORPUSCULAR HEMOGLOBIN 28.4 pg (27.0-33.4); MEAN CORPUSCULAR HGB CONC 33.3 g/dL (32.0-36.0); MEAN CORPUSCULAR VOLUME 86 fl (80-97); MONOCYTES % (AUTO) 6.8 % (3-13); PLATELET COUNT 274 10^3/uL (150-450); RED BLOOD COUNT 4.92 10^6/uL (3.72-5.28); RED CELL DISTRIBUTION WIDTH 13.5 % (11.5-14.0); SEGMENTED NEUTROPHILS % (AUTO) 72.3 % (42-78); TOTAL CELLS COUNTED % (AUTO) 100 %; WHITE BLOOD COUNT 11.2 10^3/uL (4.0-10.5)
[2020-03-21 19:25] LABS: ALBUMIN 4.7 g/dL (3.5-5.0); ALKALINE PHOSPHATASE 106 U/L (38-126); ANION GAP 13 (5-19); ASPARTATE AMINO TRANSFERASE 17 U/L (14-36); BILIRUBIN,DIRECT 0.1 mg/dL (0.0-0.4); BILIRUBIN,TOTAL 0.3 mg/dL (0.2-1.3); BLOOD UREA NITROGEN 14 mg/dL (7-20); CALCIUM 10.5 mg/dL (8.4-10.2); CARBON DIOXIDE 27 mmol/L (22-30); CHLORIDE 102 mmol/L (98-107); GLUCOSE 107 mg/dL (75-110); POTASSIUM 4.2 mmol/L (3.6-5.0); TOTAL PROTEIN 8.2 g/dL (6.3-8.2)
--- NOTE | 2020-03-21 21:04 | RADIOLOGY REPORT (SQ) ---
EXAM DESCRIPTION: CT HEAD WITHOUT IV CONTRAST COMPLETED DATE/TME: 03/21/2020 20:31 CLINICAL HISTORY: 24 years, Female, headache EXAM DESCRIPTION: CT HEAD WITHOUT CLINICAL HISTORY: headache COMPARISON: None Available TECHNIQUE: Contiguous axial CT images of the head were obtained. Coronal and sagittal reconstructions were created from the axial data. This exam was performed according to our departmental dose-optimization program, which includes automated exposure control, adjustment of the mA and/or kV according to patient size and/or use of iterative reconstruction technique. FINDINGS: There is no evidence of acute mass, mass effect, midline shift or hemorrhage. The ventricles and extra-axial CSF spaces are unremarkable. The brain parenchyma appears normal for the patient's age. No acute abnormalities of the bones is seen. IMPRESSION: No acute intracranial abnormality.
[2020-03-21 22:16] LABS: APPEARANCE,URINE CLOUDY; BILIRUBIN,URINE NEGATIVE (NEGATIVE); COLOR,URINE YELLOW; GLUCOSE, URINE NEGATIVE (NEGATIVE); KETONES,URINE NEGATIVE (NEGATIVE); LEUKOCYTE ESTERASE,URINE MODERATE (NEGATIVE); NITRITE,URINE NEGATIVE (NEGATIVE); PROTEIN,URINE NEGATIVE (NEGATIVE); UROBILINOGEN,URINE NEGATIVE mg/dL (<2.0)
[2020-03-22] MEDS ORDERED: METOCLOPRAMIDE HCL 10 MG TABLET PO ONE (00:36)
[2020-03-22] MEDS ORDERED: ACETAMINOPHEN 325 MG TABLET PO ONE (00:36)
[2020-03-22] MEDS ORDERED: DIPHENHYDRAMINE HCL 25 MG CAPSULE PO ONE (00:37)
[2020-03-22] MEDS ORDERED: ACETAMINOPHEN 325 MG TABLET ONE (00:40)
[2020-03-22 02:25] VITALS: BP 138/86
--- OUTSIDE RECORDS SUMMARY | 2020-03-25 08:51 | XMS REPORT ---
:1995 [facility] [address] [place] [id number] Care Team Providers Name Role Phone Tonya Batres Attending Clinician Unavailable Allergies, Adverse Reactions, Alerts This patient has no known allergies or adverse reactions. Medications This patient has no known medications. Problems This patient has no known problems. Procedures Procedure Date / Time Performed Performing Clinician Omeor faust Annual depression screening, 2018-12-01 00:00:00 minutes Annual alcohol misuse screening, 2018-12-01 00:00:00 minutes CASE MANAGEMENT NON MED 15MIN 2018-12-01 00:00:00 Results Test Description Test Time Test Comments Text Results Atomic Results Result Comments Urine test, visual color comparison methods"/> 2018-11 00:00:00 Test Item Value Reference Range Comments Urine test (test code = Urine test) Positive Neg Assessments Condition Name Status Diagnosis Date Treating Clinici an Encounter for screening Unknown 2018-12-01 18: 02:00 uncert dates Encounters Start End Encounter Admission Attending Care Care Encounter Date/Time Date/Time Type Type Clinicians Facility Department ID 2018-12-01 2018-12-02 Outpatient [facility] [id number] 14:00:00 11:15:05 2018-12-01 2018-12-01 Office/Outpt Dara [facility] 1 [id number] 14:02:00 16:59:35 Visit,Prateek Mitchell III Payers Payer Name Policy Type Policy Number Effective Date Expiration D ate [facility] [[id number]] LD Social History Social Habit Start Date Stop Date Comments Sex Assigned At 2018-12-02 00:00:00 2018-12-02 00:00:00 Vital Signs Vital Name Observation Time Observation Value Comments BMI 2018-12-01 14:24:00 34.02 kg/m2 Systolic blood pressure 2018-12-01 14:24:00 148 mm[Hg] Diastolic blood pressure 2018-12-01 14:24:00 88 mm[Hg] Body temperature 2018-12-01 14:24:00 36.7 Cherry Heart rate 2018-12-01 14:24:00 94 /min Oxygen saturation in Capillary blood 2018-12-01 14:24:00 98 % by Oximetry Height 2018-12-01 14:24:00 172.7 cm Weight 2018-12-01 14:24:00 101.5 kg Hospital Discharge Instructions Patient was given instructions Patient Education Material Given., Nutrition discussed., Call for anyconcerns/questions, No barriers to treatment or medication assessedVisit [id number] Education Material Given.: Nutrition discussed.: [id number] for any concerns/questions: No barriers to treatment or medication assessed: Patient was given education DatePatient [id number] (Patient wears glasses)Patient was given instructions Patient Education Material Given., Nutrition discussed.Visit [id number] Education Material Given.: Nutrition discussed.: Patient was given education DatePatient [id number] (Patient wears glasses)
== END 2020-03-22 04:05 | disposition left against medical advice (07) ==
LOC: ER 17:43
DX: R51.9 Headache, unspecified (principal)
CPT/HCPCS: 36415; 70450; 80053; 81001; 84703; 85025; 99281